=== PATIENT | female | born 1995 | race Two or more races ===

== ENCOUNTER 2024-10-06 16:50 | Emergency (ER) | payer MEDICAID, SELFPAY ==
[2024-10-06 16:51] VITALS: BMI 35.2
--- NOTE | 2024-10-06 17:00 | PC.NURSE ---
PT STATES SHE HAS TO GET HOME TO HER BABY SO WILL COME BACK LATER. PT SIGNED OUT AMA.
== END 2024-10-06 17:21 | disposition left against medical advice (07) ==
LOC: SERX 17:14
PROVIDERS: Emergency Provider Emergency Medicine
DX: Z53.21 Procedure and treatment not carried out due to patient leaving prior to being seen by health care provider (principal)
CPT/HCPCS: 99283